=== PATIENT | male | born 1960 | race Caucasian/White ===

== ENCOUNTER 2022-04-26 06:08 | Inpatient (IN) ==
--- NOTE | 2022-04-09 09:55 | PAT Medication Instructions ---
Medication Instructions Date of Service April 09, 2022 Home Medications acetaminophen 500 mg capsule 500 mg PO BID PRN ascorbic acid (vitamin C) 1,000 mg tablet (Vitamin C) 1,000 mg PO QAM aspirin 81 mg chewable tablet 81 mg PO QAM atorvastatin 20 mg tablet 20 mg PO QAM chlorpheniramine-phenylpropan 4 mg-37.5 mg tablet 1 tab PO QAM coenzyme Q10 200 mg capsule (Co Q-10) 200 mg PO QAM esomeprazole magnesium 20 mg tablet,delayed release 20 mg PO QAM famotidine 20 mg tablet 20 mg PO QAM omega-3 fatty acids-vitamin E 1,000 mg capsule 1 cap PO QAM ASK your prescriber and surgeon aspirin 81 mg chewable tablet 81 mg PO QAM STOP taking 2 weeks before surgery (or as soon as possible if surgery is within 2 weeks) coenzyme Q10 200 mg capsule (Co Q-10) 200 mg PO QAM omega-3 fatty acids-vitamin E 1,000 mg capsule 1 cap PO QAM DO NOT take the morning of surgery ascorbic acid (vitamin C) 1,000 mg tablet (Vitamin C) 1,000 mg PO QAM chlorpheniramine-phenylpropan 4 mg-37.5 mg tablet 1 tab PO QAM Take morning of surgery With a small sip of water, OTHERWISE NOTHING TO EAT OR DRINK AFTER MIDNIGHT: acetaminophen 500 mg capsule 500 mg PO BID PRN (if needed) atorvastatin 20 mg tablet 20 mg PO QAM esomeprazole magnesium 20 mg tablet,delayed release 20 mg PO QAM famotidine 20 mg tablet 20 mg PO QAM Take evening before surgery acetaminophen 500 mg capsule 500 mg PO BID PRN (if needed) Other Notes If you have any questions please call us at [phone] or [phone] or [phone] or [phone]
--- NOTE | 2022-04-12 14:19 | Anesthesiology Consultation ---
Date of Service April 12, 2022 Assessment & Plan (1) Encounter for pre-operative examination: - Abnormal CXR: Preop CXR notes Opacity of the medial right lung base with partial obscuration of the right heart border is suggestive of a prominent epicardial fat pad. Airspace disease could appear similarly. Forwarded to PCP. Awaiting PCP response. - COVID screening: Per assessment on 04/12: No known COVID-19 positive contacts or current COVID-19 related symptoms. Travel screen negative. Surgeon arranging preop COVID testing. Awaiting results. Chart Review Chart Review: Patient seen in Pre Admission Testing Teaching & Discussion Pre-Anesthesia Teaching/Discussion Notes: Instructed NPO after midnight before surgery,except medications with 15 cc of water. Medication instructions provided according to the PAT guidelines. History Surgery Operation Date: 04/26/22 07:45 Proposed Procedures p C5-C6 Anterior Cervical Discectomy and Fusion, Spinal Cord Monitoring - Ankur Ron, Height/Weight Height: 5 ft 6 in Weight: 77.1 kg Allergies Allergy/AdvReac Type Severity Reaction Status Date / Time No Known Allergies Allergy Verified 04/04/22 15:18 Medications Home Medications Medication Instructions Recorded Confirmed Last Taken acetaminophen 500 mg capsule 500 mg PO BID PRN 04/04/22 04/04/22 Unknown ascorbic acid (vitamin C) 1,000 mg 1,000 mg PO QAM 04/04/22 04/04/22 Unknown tablet (Vitamin C) aspirin 81 mg chewable tablet 81 mg PO QAM 04/04/22 04/04/22 Unknown atorvastatin 20 mg tablet 20 mg PO QAM 04/04/22 04/04/22 Unknown chlorpheniramine-phenylpropan 4 1 tab PO QAM 04/04/22 04/04/22 Unknown mg-37.5 mg tablet coenzyme Q10 200 mg capsule (Co 200 mg PO QAM 04/04/22 04/04/22 Unknown Q-10) esomeprazole magnesium 20 mg 20 mg PO QAM 04/04/22 04/04/22 Unknown tablet,delayed release famotidine 20 mg tablet 20 mg PO QAM 04/04/22 04/04/22 Unknown omega-3 fatty acids-vitamin E 1 cap PO QAM 04/04/22 04/04/22 Unknown 1,000 mg capsule Past Medical History Medical History GERD (gastroesophageal reflux disease) History of COVID-19 09/2021 > sore throat, resolved Hyperlipidemia Poor historian Exercise / Class Metabolic Activity II 4-5 Yardwork/Stairs/Walk up hill Past Surgical History Surgical History S/P tooth extraction All teeth extracted Past Anesthesia History No Hx of Anesthesia Complications and No Family Hx of Anesthesia Complications History of PONV No Hx of PONV and No Hx of Motion Sickness Social History Smoking Status: Current every day smoker tobacco type: cigarettes Smoking cigarettes per day: 10 cigs/day Do You Dip or Chew Tobacco: No Hx Alcohol Use: Yes Alcohol type: beer, wine and hard liquor alcohol intake frequency: holidays/special occasions only Hx Substance Use: No substance use type: does not use Review of Systems Patient denies chest pain, shortness of breath, dyspnea on exertion, fever, chills, cough, wheezing, palpitations. Physical Exam Vital Signs VITALS BP 109/63 P 58 TEMP 98.2 SP02 98%RA RESP 16 PHYSICAL Mildly decreased cervical extension range of motion. Full TMJ range of motion. TMD 3.5 finger breaths Mallampati Score 2 Dentition: intact Lungs: clear throughout to auscultation Cardiac: regular rate and rhythm, no murmurs noted Spine: normal Carotid arteries: negative bruit Extremities: no edema Lab Results Anesthesia Preop Results Results Anesthesia Widget: WBC 11.50 K/ul (4.8-10.8) H 04/12/22 Hgb 14.7 g/dl (14.0-18.0) 04/12/22 Hct 44.0 % (40.1-51.0) 04/12/22 Plt 298 K/uL (130-400) 04/12/22 Na 138 mmol/L (136-145) 04/12/22 K 4.3 mmol/L (3.5-5.1) 04/12/22 Cl 105 mmol/L (98-107) 04/12/22 CO2 28 mmol/L (21-32) 04/12/22 BUN 15 mg/dl (6-23) 04/12/22 Creat 0.89 mg/dl (0.6-1.4) 04/12/22 Glucose Level 95 mg/dl (70-99(Fasting)) 04/12/22 PT 10.6 Seconds (9.0-12.0) 04/12/22 PTT 26.6 Seconds (21.0-31.0) 04/12/22 INR 1.0 (0.9-1.1) 04/12/22 Urine Color Yellow 04/12/22 Urine Appearance Clear (Clear) 04/12/22 Urine pH 7.0 (4.5-7.5) 04/12/22 Urine Specific [place] 1.022 (1.000-1.030) 04/12/22 Urine Protein Negative (Negative) 04/12/22 Urine Glucose (UA) Negative (Negative) 04/12/22 Urine Ketones Negative (Negative) 04/12/22 Urine Blood Negative (Negative) 04/12/22 Urine Nitrite Negative (Negative) 04/12/22 Urine Bilirubin Negative (Negative) 04/12/22 Urine Urobilinogen Negative (Negative) 04/12/22 Urine Leukocyte Esterase Negative (Negative) 04/12/22 Blood Type A Positive 04/12/22 Antibody Screen NEGATIVE 04/12/22 Testing Laboratory Results Surgeon's office made aware of elevated WBC* Electrocardiogram Date: 04/12/22 SB at 57bpm. Otherwise normal ECG. Chest X-Ray Date: 04/12/22 FINDINGS: The cardiac silhouette is mildly enlarged. Opacity of the medial right lung base with partial obscuration of the right heart border. No pneumothorax, pleural effusion or overt pulmonary edema. Mild hyperinflation with diaphragmatic flattening. Degenerative changes of the shoulders and spine. IMPRESSION: Opacity of the medial right lung base with partial obscuration of the right heart border is suggestive of a prominent epicardial fat pad. Airspace disease could appear similarly.
[~2022-04-26 06:08] MED LIST: ACETAMINOPHEN 500 MG TAB PO SCH; CeleBREX 200 MG CAP PO SCH; GABAPENTIN 600 MG DOSE PO SCH; LR 15ML/HR IV SCH; ceFAZolin 1000MG 1,000 MG/7.5 ML SYR IV SCH
[2022-04-26] MEDS ORDERED: MIDAZOLAM HCL 1 MG/ML 2ML VIAL ONE (07:14)
[2022-04-26] MEDS ORDERED: fentaNYL citrate 100 MCG/2 ML VIAL ONE (07:14)
[2022-04-26] MEDS ORDERED: KETAMINE 50 MG/5 ML SYRINGE ONE (07:18)
--- NOTE | 2022-04-26 07:29 | History & Physical Report ---
Date of Service April 26, 2022 Assessment & Plan (1) Cervical radiculopathy: Plan: C5-C6 anterior cervical discectomy and fusion History of Present Illness Chief Complaint: Neck and arm pain Primary Care Provider: Lynda Andino PA-C This is a 61-year-old male presents with chronic persistent neck and arm pain. Failing extensive course of nonoperative care is here for surgical intervention. Allergies Allergy/AdvReac Type Severity Reaction Status Date / Time No Known Allergies Allergy Verified 04/26/22 06:35 Home Medications Medication Instructions Recorded Confirmed Type acetaminophen 500 mg capsule 500 mg PO BID PRN Pain 04/04/22 04/26/22 History ascorbic acid (vitamin C) 1,000 mg 1,000 mg PO QAM 04/04/22 04/26/22 History tablet (Vitamin C) aspirin 81 mg chewable tablet 81 mg PO QAM 04/04/22 04/26/22 History atorvastatin 20 mg tablet 20 mg PO QAM 04/04/22 04/26/22 History chlorpheniramine-phenylpropan 4 1 tab PO QAM 04/04/22 04/26/22 History mg-37.5 mg tablet coenzyme Q10 200 mg capsule (Co 200 mg PO QAM 04/04/22 04/26/22 History Q-10) esomeprazole magnesium 20 mg 20 mg PO QAM 04/04/22 04/26/22 History tablet,delayed release (Nexium 24HR) famotidine 20 mg tablet 20 mg PO QAM 04/04/22 04/26/22 History omega-3 fatty acids-vitamin E 1 cap PO QAM 04/04/22 04/26/22 History 1,000 mg capsule Past Med/Surg History Medical History GERD (gastroesophageal reflux disease) History of COVID-19 09/2021 > sore throat, resolved Hyperlipidemia Poor historian Surgical History S/P tooth extraction All teeth extracted Social History Smoking Status: Current every day smoker Cigarettes Per Day: 10 cigs/day; Second Hand Exposure: No; Do You Dip or Chew Tobacco: No; Tobacco Cessation Education Requested by Patient: No Hx Alcohol Use: Yes Alcohol type: beer, wine and hard liquor Hx Substance Use: No Preferred Language: Faroese Communication Ability: Effective Call Center Agent Required: No Beliefs That Will Affect Care: None Current Living Situation: Alone Other Information That Helps Us Care for You: No Feels Safe at Home: Yes Safety Concerns: Feels Safe At This Time Assistive Devices: Glasses Assistive Devices Comment: NO TEETH Physical Exam Physical Exam: Patient is alert and oriented Heart regular rhythm Lungs clear Results & Data Results & Data ([facility]) Vital Signs (Past 12 Hours) Vital Signs Temp Pulse Resp BP Pulse Ox O2 Del Method 04/26/22 06:38 36.6 C 59 L 20 125/80 95 Room Air
--- NOTE | 2022-04-26 07:29 | History & Physical Bridge Note ---
Date of Service April 26, 2022 History & Physical Bridge Note I have examined the patient, reviewed the History & Physical and in the interval since the performance of the History & Physical I have noted the following changes of clinical significance: no changes noted
[2022-04-26] MEDS ORDERED: BUPIVACAINE/EPINEPHRINE 0.25% 1:200,000 30 ML VIAL ONE (07:36)
[2022-04-26] MEDS ORDERED: ceFAZolin 330 MG/ML 1 GM VIAL ONE (07:36)
[2022-04-26] MEDS ORDERED: ONDANSETRON INJ 2 MG/ML 2 ML VIAL IV PRN ×2 (07:49→10:51)
[2022-04-26] MEDS ORDERED: ePHEDrine sulfate 50 MG/ML AMP IV PRN (07:49)
[2022-04-26] MEDS ORDERED: fentaNYL citrate 100 MCG/2 ML VIAL IV PRN (07:49)
[2022-04-26] MEDS ORDERED: ATROPINE SULFATE 0.1 MG/ML 10ML SYR IV PRN (07:49)
[2022-04-26] MEDS ORDERED: HYDROmorphone INJ 2 MG/ML SYR/VIAL ONE (08:11)
[2022-04-26] MEDS ORDERED: GLYCOPYRROLATE 0.2 MG/ML VIAL ONE (08:39)
[2022-04-26] MEDS ORDERED: PROPOFOL IV EMULSION 10 MG/ML 20 ML VIAL IV ONE (08:39)
[2022-04-26] MEDS ORDERED: DEXAMETHASONE SOD INJ 4 MG/ML VIAL ONE (08:39)
[2022-04-26] MEDS ORDERED: ONDANSETRON INJ 2 MG/ML 2 ML VIAL ONE (08:39)
[2022-04-26] MEDS ORDERED: FLOSEAL HEMOSTATIC MATRIX 10ML TOP ONE (08:39)
[2022-04-26] MEDS ORDERED: SUCCINYLCHOLINE CHLORIDE 20 MG/ML 10 ML VIAL IV ONE (08:39)
--- NOTE | 2022-04-26 08:58 | Operative Report ---
Post Operative Report Pre & Post Diagnosis Operation Date: 04/26/22 07:45 Pre-Op Diagnosis: Cervical disc herniation with radiculopathy Post-Op Diagnosis: Same I identified the patient and participated in the time-out.: Yes Procedure Operation Date: 04/26/22 07:45 Actual Procedures #1 anterior cervical discectomy with bilateral foraminotomies C5-C6. #2 anterior cervical arthrodesis C5-C6. #3 placement 8 mm spiral cage filled with I factor C5-C6. #4 application of young plate and screws across C5-C6. Surgeon Ankur Ron, Senior Compensation Consultant Tyrese Recinos Estimated Blood Loss 10 Findings Consistent with Post-Op Diagnosis Specimens None Indications This is a 61-year-old male who presents above-mentioned diagnosis after failing course of nonoperative care is here for surgical invention. Description of Procedure Patient met with identified informed consent obtained. Patient was then taken to the operative suite underwent a patient placed in supine position on a Amador table with head Kelly head and neck surgeon. All bony prominences well-padded eyes inspected to ensure no external pressure placed upon the. This point the anterior cervical spine was prepped and draped no sterile fashion. The assistance of fluoroscopy identify the C5-C6 disc base and a transverse incision was placed along the right anterior aspect of the cervical spinal lines region. Blunt dissection with assistance of bipolar electrocautery was performed down to and exposing the anterior cervical spine at C5-C6. A self-retaining retractors placed. Then performed a complete discectomy of C5-C6 out to the uncovertebral joints bilaterally. Edwards distracting pins were utilized to assist in visualization. I removed all posterior annular fibers and longitudinal ligament to perform bilateral foraminotomies. The endplates were then burred to subcortical bleeding bone and a 8 mm spiral cage filled with I factor tapped in position. Distracting apparatus was removed and 5 complete and screws applied with the assistance of fluoroscopy. Incision was then copiously irrigated explored to ensure no damage to surrounding structures remaining bleeding. [address] drain inserted. The incision was then closed with 2 Vicryl in a fashion of 4 Monocryl for final skin closure. Steri-Strip sterile dressings placed. Patient waken taken PACU stable condition. Please note spinal cord monitoring was utilized at the procedure no changes noted. Lastly Tyrese Recinos was present out the entire procedure involved the patient positioning complex portions of the surgery and final skin closure. I attest to the content of the Intraoperative Record and any orders documented therein. Any exceptions are noted below.
--- NOTE | 2022-04-26 09:31 | Fluoroscopy Report ---
INTRAOPERATIVE RADIOGRAPHS CLINICAL HISTORY: Cervical spinal fusion. Fluoroscopy time: 12 seconds. FINDINGS: 2 spot fluoroscopic views of the cervical spine are presented. There have been discectomy a t C5-C6 with anterior spinal fusion at this level. The orthopedic hardware appears intact. An endotra cheal tube is in place. A surgical drain is noted. IMPRESSION: Intraoperative images from C5-C6 spinal fusion as above. Electronically signed by: Taran Quevedo M.D. 04/26/2022 9:29 AM
[2022-04-26] MEDS ORDERED: traMADol HCL 50 MG TABLET PO PRN (10:51)
[2022-04-26] MEDS ORDERED: HYDROmorphone INJ 0.5 MG/0.5 ML SYR IV PRN (10:51)
[2022-04-26] MEDS ORDERED: FAMOTIDINE 20 MG TAB PO PRN (10:51)
[2022-04-26] MEDS ORDERED: HYDROmorphone INJ 1 MG/ML SYRINGE IV PRN (10:51)
[2022-04-26] MEDS ORDERED: hydrOXYzine HCl 25 MG TAB PO PRN (10:51)
[2022-04-26] MEDS ORDERED: dexAMETHasone 6 MG in SYRINGE 0 ML IV SCH (10:51)
[2022-04-26] MEDS ORDERED: SOD PHOSPHATE/SOD BIPHOSPHATE ENEMA 132 ML BTL PR PRN (10:51)
[2022-04-26] MEDS ORDERED: NON-FORMULARY MEDICATION (Coenzyme Q10 [Co Q-10] 200 mg Capsule) PO SCH (10:51)
[2022-04-26] MEDS ORDERED: LORazepam 0.5 MG TAB PO PRN (10:51)
[2022-04-26] MEDS ORDERED: METOCLOPRAMIDE HCL INJ 5 MG/ML 2 ML VIAL IV PRN (10:51)
[2022-04-26] MEDS ORDERED: dexAMETHasone 8 MG in SYRINGE 0 ML IV PRN (10:51)
[2022-04-26] MEDS ORDERED: ONDANSETRON 4 MG OD TAB PO PRN (10:51)
[2022-04-26] MEDS ORDERED: bisacodyL 10 MG SUPP PR PRN (10:51)
[2022-04-26] MEDS ORDERED: oxyCODONE HCL IR 5 MG TAB (IMMEDIATE RELEASE) PO PRN (10:51)
[2022-04-26] MEDS ORDERED: PROMETHAZINE HCL 12.5 MG in SODIUM CHLORIDE 0.9% 50 ML IV PRN (10:51)
[2022-04-26] MEDS ORDERED: RACEPINEPHRINE 2.25% NEBU SOLN 0.5 ML VIAL INH PRN (10:51)
[2022-04-26] MEDS ORDERED: ACETAMINOPHEN 1,000 MG/100 ML VIAL IV PRN (10:51)
[2022-04-26] MEDS ORDERED: ALUMINUM/MAGNESIUM SUSP 30 ML UDC PO PRN (10:51)
[2022-04-26] MEDS ORDERED: MAGNESIUM HYDROXIDE SUSP 30 ML UDC PO PRN (10:51)
[2022-04-26] MEDS ORDERED: diphenhydrAMINE Capsule 25 MG CAP PO PRN (10:51)
[2022-04-26] MEDS ORDERED: LORazepam 0.5 MG in SYRINGE 0.25 ML IV PRN (10:51)
[2022-04-26] MEDS ORDERED: NALOXONE HCL 0.4 MG/1 ML VIAL/CARP IV PRN (10:51)
--- NOTE | 2022-04-26 11:35 | Hospitalist Consultation ---
Date of Consultation April 26, 2022 Assessment & Plan (1) S/P spinal surgery: (2) Cervical radiculopathy: This is a 61yo M with PMH of cervical radiculopathy, cirrhosis, GERD, HLD who is POD #0 s/p anterior cervical discectomy with bilateral foraminotomies C5-C6 by Dr. Ron. POD #0 s/p anterior cervical discectomy with bilateral foraminotomies C5-C6 by Dr. Ron Per ortho for pain control, wound care, anticoagulation and activities Monitor H&H (pre-op hgb 14.7, EBL 10 ml) Continue incentive spirometry, PT/OT when appropriate (3) GERD (gastroesophageal reflux disease): Continue PPI (4) Cirrhosis: Aware of diagnosis, no longer follows with GI/hepatology. Drinks a few night a week socially (5) Hyperlipidemia: Continue statin (6) Tobacco use: Cessation recommended. Not interested in nicotine patch PCP: Thu Dispo: Per primary service Patient seen in collaboration with Dr. Bond. Please see addendum. Supervising Physician Co-Signing Physician Notes Attending addendum: The patient was seen and examined in medical floor He is a status post C5-C6 ACDF Complains to have some pain and still a little drowsy from the effects of anesthetics Denies any significant symptoms On examination Lying in bed comfortably Afebrile and is hemodynamically stable Chestclear to auscultate bilaterally HeartS1-S2, no murmur Abdomenbenign CNSalert, awake and oriented x3 His labs, EKG and imaging studies reviewed Remains stable following ACDF surgery Other significant medical conditions remained stable as above Agree with assessment and plan as outlined above by JIMBO Zamorano Dr History of Present Illness Reason for Consultation: post op medical mgmt Attending Physician: Ankur Ron, DO History of Present Illness This is a 61yo M with PMH of cervical radiculopathy, cirrhosis, GERD, HLD who is POD #0 s/p anterior cervical discectomy with bilateral foraminotomies C5-C6 by Dr. Ron. Patient feeling well postoperatively. Denies any surgical site pain or paresthesias of bilateral upper extremity. No weakness in upper extremity. Denies any fever, chills, chest pain, shortness of breath, nausea, vomiting, abdominal pain, dysuria, diarrhea or constipation. Receives primary care in [place]. Still smoking 1 pack a day. Allergies Allergy/AdvReac Type Severity Reaction Status Date / Time No Known Allergies Allergy Verified 04/26/22 06:35 Home Medications Medication Instructions Recorded Confirmed Type acetaminophen 500 mg capsule 500 mg PO BID PRN Pain 04/04/22 04/26/22 History ascorbic acid (vitamin C) 1,000 mg 1,000 mg PO QAM 04/04/22 04/26/22 History tablet (Vitamin C) aspirin 81 mg chewable tablet 81 mg PO QAM 04/04/22 04/26/22 History atorvastatin 20 mg tablet 20 mg PO QAM 04/04/22 04/26/22 History chlorpheniramine-phenylpropan 4 1 tab PO QAM 04/04/22 04/26/22 History mg-37.5 mg tablet coenzyme Q10 200 mg capsule (Co 200 mg PO QAM 04/04/22 04/26/22 History Q-10) esomeprazole magnesium 20 mg 20 mg PO QAM 04/04/22 04/26/22 History tablet,delayed release (Nexium 24HR) famotidine 20 mg tablet 20 mg PO QAM 04/04/22 04/26/22 History omega-3 fatty acids-vitamin E 1 cap PO QAM 04/04/22 04/26/22 History 1,000 mg capsule oxycodone 5 mg tablet 5 mg PO Q6H PRN pain, severe #20 04/26/22 Rx tabs tramadol 50 mg tablet 50 mg PO Q6H PRN pain, moderate 04/26/22 Rx #20 tabs Patient History Medical History Cirrhosis GERD (gastroesophageal reflux disease) History of COVID-19 09/2021 > sore throat, resolved Hyperlipidemia Poor historian Tobacco use Surgical History S/P tooth extraction All teeth extracted Family History Other Heart disease History of dental surgery Social History Smoking Status: Current every day smoker Cigarettes Per Day: 10 cigs/day; Second Hand Exposure: No; Do You Dip or Chew Tobacco: No; Tobacco Cessation Education Requested by Patient: No Hx Alcohol Use: Yes Alcohol type: beer, wine and hard liquor Hx Substance Use: No Preferred Language: Estonian Communication Ability: Effective Bowl Turner Required: No Beliefs That Will Affect Care: None Current Living Situation: Alone Other Information That Helps Us Care for You: No Feels Safe at Home: Yes Safety Concerns: Feels Safe At This Time Assistive Devices: Glasses Assistive Devices Comment: NO TEETH Review of Systems Review of Systems: At least ten systems reviewed and negative except as noted in the HPI. Physical Exam Physical Exam: Gen: WD/WN, NAD, sitting in bed, A&Ox3 HEENT: Normocephalic, atraumatic, conjunctivae moist, sclerae anicteric, mucous membranes moist Neck: C collar in place, drain visualized Lung: Clear to Auscultation bilaterally, no wheezes/rales/rhonchi Heart: Regular rate, regular rhythm, no murmurs, rubs, or gallops Abdomen: Soft, NT, ND +BS x 4 Extremities: BUE strength intact. County Judge strength 5/5. No edema Skin: Warm, no rash Results & Data Results & Data ([facility]) Vital Signs (Past 12 Hours) Vital Signs Temp Pulse Pulse Resp BP BP Pulse Ox 04/26/22 11:25 58 L 14 96 04/26/22 11:16 36.5 C 57 L 15 133/79 97 04/26/22 10:55 36.5 C 59 L 16 129/76 97 04/26/22 10:30 58 L 12 140/73 96 04/26/22 10:20 36.4 C L 55 L 12 137/76 95 04/26/22 10:10 63 14 126/75 94 04/26/22 10:00 55 L 13 136/72 97 04/26/22 09:50 54 L 13 122/78 98 04/26/22 09:40 53 L 12 104/76 99 04/26/22 09:30 62 18 131/80 96 04/26/22 09:23 36.2 C L 62 14 140/81 95 04/26/22 06:38 36.6 C 59 L 20 125/80 95 O2 Del Method O2 Flow Rate 04/26/22 11:25 Nasal Cannula 2 04/26/22 11:16 Nasal Cannula 2.5 04/26/22 10:55 Nasal Cannula 2 04/26/22 10:30 Nasal Cannula 2 04/26/22 10:20 Nasal Cannula 2 04/26/22 10:10 Nasal Cannula 2 04/26/22 10:00 2 04/26/22 09:50 13 04/26/22 09:40 13 04/26/22 09:30 13 04/26/22 09:23 13 04/26/22 06:38 Room Air
--- NOTE | 2022-04-26 12:02 | Anesthesiology Progress Note ---
Date of Service April 26, 2022 Anesthesia Post Procedure Vital Signs Vital Signs: Temp Pulse Pulse Pulse Resp BP BP 04/26/22 11:42 36.8 C 58 L 16 128/75 04/26/22 11:25 58 L 14 04/26/22 11:16 36.5 C 57 L 15 133/79 04/26/22 10:55 36.5 C 59 L 16 129/76 04/26/22 10:30 58 L 12 140/73 04/26/22 10:20 36.4 C L 55 L 12 137/76 04/26/22 10:10 63 14 126/75 04/26/22 10:00 55 L 13 136/72 04/26/22 09:50 54 L 13 122/78 04/26/22 09:40 53 L 12 104/76 04/26/22 09:30 62 18 131/80 04/26/22 09:23 36.2 C L 62 14 140/81 04/26/22 06:38 36.6 C 59 L 20 125/80 Pulse Ox O2 Del Method O2 Flow Rate 04/26/22 11:42 96 Nasal Cannula 2.5 04/26/22 11:25 96 Nasal Cannula 2 04/26/22 11:16 97 Nasal Cannula 2.5 04/26/22 10:55 97 Nasal Cannula 2 04/26/22 10:30 96 Nasal Cannula 2 04/26/22 10:20 95 Nasal Cannula 2 04/26/22 10:10 94 Nasal Cannula 2 04/26/22 10:00 97 2 04/26/22 09:50 98 13 04/26/22 09:40 99 13 04/26/22 09:30 96 13 04/26/22 09:23 95 13 04/26/22 06:38 95 Room Air Pain Intensity Anterior Neck: Pain Intensity: 2 Transfer of Care Handoff Completed per policy Notes Mental Status: alert / awake / arousable Patient Amnestic to Procedure: Yes Nausea / Vomiting: adequately controlled Pain: adequately controlled Airway Patency, RR, SpO2: stable & adequate BP & HR: stable & adequate Hydration State: stable & adequate Anesthetic Complications: no major complications apparent
[2022-04-26] MEDS: LACTATED RINGER'S 1,000 ML IV SCH ×2 (12:18→22:06)
[2022-04-26] MEDS: ATORVASTATIN 20 MG TAB PO SCH (13:06)
[2022-04-26] MEDS: FAMOTIDINE 20 MG TAB PO SCH (13:06)
[2022-04-26] MEDS: PANTOprazole 40 MG TAB PO SCH (13:06)
[2022-04-26] MEDS: ceFAZolin 2000MG 2,000 MG/15 ML SYR IV SCH ×2 (16:01→22:52)
[2022-04-26] MEDS ORDERED: DOCUSATE SODIUM/SENNA 50/8.6MG TAB PO SCH (21:00)
[2022-04-27] MEDS: ACETAMINOPHEN 500 MG TAB PO PRN ×2 (01:02→09:13)
[2022-04-27] MEDS: POLYETHYLENE (MIRALAX) 17 GM PACK PO SCH ×2 (05:23→12:33)
[2022-04-27] MEDS: LACTATED RINGER'S 1,000 ML IV SCH (08:53)
[2022-04-27] MEDS: ATORVASTATIN 20 MG TAB PO SCH (08:54)
[2022-04-27] MEDS: FAMOTIDINE 20 MG TAB PO SCH (08:54)
[2022-04-27] MEDS: PANTOprazole 40 MG TAB PO SCH (08:54)
[2022-04-27] MEDS ORDERED: dexAMETHasone 6 MG in SYRINGE 0 ML IV SCH (09:00)
--- NOTE | 2022-04-27 09:44 | Electrocardiogram Report ---
Test Reason : Blood Pressure : / mmHG Vent. Rate : 050 BPM Atrial Rate : 050 BPM P-R Int : 174 ms QRS Dur : 094 ms QT Int : 444 ms P-R-T Axes : 052 038 031 degrees QTc Int : 404 ms Sinus bradycardia Otherwise normal ECG When compared with ECG of 12-APR-2022 15:13, No significant change was found Confirmed by Saturnino Meng ([id number] on 04/27/2022 9:44:39 AM Referred By: Ankur Ron Confirmed By:Saturnino Meng
--- NOTE | 2022-04-27 10:29 | Discharge Summary ---
Date of Service April 27, 2022 Admission HPI Per Admitting Provider This is a 61-year-old male presents with chronic persistent neck and arm pain. Failing extensive course of nonoperative care is here for surgical intervention. Principal Diagnosis Cervical spinal stenosis with radiculopathy Discharge Data Allergies Allergy/AdvReac Type Severity Reaction Status Date / Time No Known Allergies Allergy Verified 04/26/22 06:35 Consultations 04/26/22 10:51 Consult Hospitalist Routine Procedures Performed Operation Date: 04/26/22 07:45 Actual Procedures p C5-C6 Anterior Cervical Discectomy and Fusion, Spinal Cord Monitoring(Not Applicable) - Ankur Ron DO Ordered Studies 04/26/22 07:45 FL cervical 2-3V Routine Hospital Course (1) Cervical radiculopathy: Patient 1 anterior cervical discectomy and fusion tolerated this well was taken to orthopedic floor postoperative. Postop day 1 he is swallowing well no hoarseness. Arm symptoms are improved. RD drain decreasing appropriately. Excellent strength testing. Separately discharged home. Discharge orders and instructions from the chart for further review. Total Time Total Time Spent Total Time Spent (In Minutes): 20 minutes Discharge Plan Discharge Items Patient Disposition: Home - Self-Care Reason For Visit: Spinal Stenosis, Cervical Region Discharge Diagnosis: Cervical radiculopathy Activity: As commented below Non-emergency contact: Primary Care Provider Call non-emergency contact if: you have any medication questions Follow-up/Referrals: Lynda Andino PA-C [Primary Care Provider] - Diet: Regular Addtl Attending Provider Instructions: ACTIVITY RECOMMENDATIONS: SELF CARE INSTRUCTIONS AFTER CERVICAL FUSIONS 1. No smoking. Smoking drastically decreases the chance of a solid fusion. 2. No bending, lifting more than 5 pounds, or twisting (roll like a log when turning in bed). 3. You may shower 3 days after surgery. Thoroughly dry wound. Do not soak in the tub. 4. Cervical collar: Must be worn at all times including sleeping. You may remove the brace only to bath, eat and if you are sitting in a recliner. 5. Please walk as much as you can for exercise. Gradually increase the distance that you walk as your endurance increases. SPECIAL CARE INSTRUCTIONS: VERY IMPORTANT TO READ AND REVIEW A. Do not take any anti-inflammatory medications (i.e. Indocin, Advil, Aspirin, Naprosyn, Aleve, Motrin, etc.) as these may inhibit the chance of a solid fusion. Tylenol is okay to take. B. Your surgical incision has been closed with a cosmetic suture under the skin that will dissolve in about 6 weeks. In 14 days, you can use a pair of clean scissors and cut the suture that is left outside of the skin at the ends of your incision. C. Complications are uncommon, but please contact us if you have any signs or symptoms of: 1. wound infection (fever higher than 102.5 degrees F, redness, separation of wound, drainage, or increasing pain from the incision) 2. blood clots in legs (pain, swelling, redness and warmth in legs) 3. urinary tract infection (fever higher than 102.5 degrees, burning upon urination or increased frequency of urination) 4. nerve problems (inability to walk on your toes or heels, numbness, loss of bowel or bladder control) 5. any other symptoms that concern you. D. Please call the office at if you have any concerns or questions about your operation or recovery. MANAGING PAIN AFTER SPINAL SURGERY 1. Narcotic medication is intended for short-term use and will be provided for surgical pain. Surgical pain usually lasts for a period of 4-6 weeks. Narcotic medication includes Percocet, Vicodin, Darvocet, Tylenol #3 or Lortab. 2. Longer-term pain is more appropriately treated with non-narcotic medication such as Tylenol ES. 3. Muscle spasm is not appropriately treated with narcotics. Muscle relaxers such as Soma, Flexeril or Skelaxin can be used along with Tylenol ES. 4. Remember that we all live with some "aches and pains". This is not unusual or uncommon after an injury or as we get older. 5. We will provide appropriate medication within the normal guidelines of their prescribed use. We will also be very cautious and aware of potential abuse and extended duration of patients' medication needs. 6. Please allow 2-3 days to process refills. Prescriptions will not be mailed but must be picked up at the office. FOLLOW UP VISIT: Keep your scheduled follow-up appointment. Any questions, please call the office at . Pending Studies at Discharge: No Stand-Alone Forms: Doctor Evidence, Smoking Cessation Medications and DC Order Prescriptions: New tramadol 50 mg tablet 50 mg PO Q6H PRN (Reason: pain, moderate) Qty: 20 0RF oxycodone 5 mg tablet 5 mg PO Q6H PRN (Reason: pain, severe) Qty: 20 0RF Continued ascorbic acid (vitamin C) [Vitamin C] 1,000 mg Tablet 1,000 mg PO QAM atorvastatin 20 mg Tablet 20 mg PO QAM chlorpheniramine-phenylpropan 4-37.5 mg Tablet 1 tab PO QAM famotidine 20 mg Tablet 20 mg PO QAM aspirin 81 mg Tablet,Chewable 81 mg PO QAM acetaminophen 500 mg Capsule 500 mg PO BID PRN (Reason: Pain) omega-3 fatty acids-vitamin E 1,000 mg Capsule 1 cap PO QAM coenzyme Q10 [Co Q-10] 200 mg Capsule 200 mg PO QAM esomeprazole magnesium [Nexium 24HR] 20 mg Tablet,Delayed Release (Dr/Ec) 20 mg PO QAM Discharge Orders: Discharge Order (Routine); Ordered 04/27/22 Ordered By: Ankur Ron Admission Data Admit Date/Time: 04/26/22 09:01 Attending Provider: Ankur Ron Admit Provider: Ankur Ron Primary Care Provider: Lynda Andino Other Providers: Kelly Firas ; Crescencio Conrad
--- NOTE | 2022-04-27 13:08 | Hospitalist Progress Note ---
Date of Service April 27, 2022 Assessment & Plan (1) S/P spinal surgery: (2) Cervical radiculopathy: Plan: This is a 61yo M with PMH of cervical radiculopathy, cirrhosis, GERD, HLD who is POD #1 s/p anterior cervical discectomy with bilateral foraminotomies C5-C6 by Dr. Ron. POD #1 s/p anterior cervical discectomy with bilateral foraminotomies C5-C6 by Dr. Ron Further management including DVT ppx, diet, activities and pain management per Dr Ron (3) GERD (gastroesophageal reflux disease): Plan: Continue PPI (4) Cirrhosis: Plan: Aware of diagnosis, no longer follows with GI/hepatology. Drinks a few night a week socially (5) Hyperlipidemia: Plan: Continue statin (6) Tobacco use: Plan: Cessation recommended. Not interested in nicotine patch Plan He is medically stable from hospitalist perspective Dispo per primary team Admission and Anticipated Discharge Date Admission Date: April 26, 2022 Subjective Feels fine. Pain is controlled. No fever, chills chest pain. Eating normally. Voiding without issues. Passing gas, no BM yet. Hoping to go home today. Physical Exam Physical Exam: General: Sitting comfortably in chair, not in distress, on room air HEENT: Neck collar, EOMI, PERRL, MMM Neck incision clean dry, RD drain with serosanguineous output Chest: Clear breath sounds bilaterally, no wheezes or crackles CVS: Regular rate and rhythm, normal heart sounds, no murmur Abdomen: Soft, non tender, not distended, normal bowel sounds Neuro: Awake, alert, oriented, conversing well, non focal Extremities: No cyanosis, clubbing or edema Results & Data Results & Data ([facility]) Vital Signs (Past 12 Hours) Vital Signs Temp Pulse Pulse Resp BP BP Pulse Ox 04/27/22 11:46 68 18 94 04/27/22 11:37 36.7 C 56 L 61 17 140/73 130/73 94 04/27/22 09:16 36.7 C 61 17 130/73 94 04/27/22 07:52 59 L 18 95 04/27/22 07:50 36.8 C 60 16 119/73 93 04/27/22 05:20 36.4 C L 59 L 16 114/66 95 04/27/22 02:40 57 L 95 04/27/22 03:21 36.6 C 51 L 18 116/69 97 O2 Del Method O2 Flow Rate 04/27/22 11:46 Room Air 04/27/22 11:37 04/27/22 09:16 Room Air 04/27/22 07:52 Room Air 04/27/22 07:50 Room Air 04/27/22 05:20 Nasal Cannula 04/27/22 02:40 Nasal Cannula 1 04/27/22 03:21 Nasal Cannula 1
== END 2022-04-27 12:57 | disposition home or self-care (01) | DRG 473 ==
LOC: ASU 06:08 → 3E 09:01